=== PATIENT | male | born 1955 ===

== ENCOUNTER 2022-10-17 07:30 | Inpatient (IN) ==
[~2022-10-17 07:30] MED LIST: Buffered Lidocaine 1% SYRIN 1 ml INTRADERM ONE; HYDROcodone/ACETAMIN 5/325 mg TAB PO PRN; Lactated Ringers 1000 ml BAG 1,000 ML IV SCH; Metoclopramide 5 MG/ML VIAL (10 mg) IV PRN; Naloxone 0.4 mg VIAL 0.4 mg/ml 1 ml VIAL IV PRN; Ondansetron 4 mg VIAL 2 MG/ML 2 ml VIAL IV PRN
[2022-10-17] MEDS ORDERED: Buffered Lidocaine 1% SYRIN 1 ml ONE (12:12)
[2022-10-17] MEDS ORDERED: ceFAZolin 2 GM PREMIX 2 GM/50 ML BAG ONE (12:12)
[2022-10-17] MEDS ORDERED: Rocuronium 50 mg VIAL 10 mg/ml 5 ml VIAL (50 mg) ONE (13:24)
[2022-10-17] MEDS ORDERED: Lidocaine 2% PF 5 ML VIAL ONE (13:26)
[2022-10-17] MEDS ORDERED: Propofol 10 MG/ML 20 ML BTL ONE (14:28)
[2022-10-17] MEDS ORDERED: HYDROmorphone 0.5 MG/0.5 ML SYRINGE ONE ×2 (14:28→15:46)
[2022-10-17] MEDS ORDERED: ROPIVACAINE 5 MG/ML 30 ML BTL (0.5%) ONE (14:44)
[2022-10-17] MEDS ORDERED: Phenylephrine 40 mcg/mL 10mL (400mcg) SYRINGE ONE (15:41)
[2022-10-17] MEDS ORDERED: Morphine 2 MG/ML SYRINGE IV PRN (17:47)
[2022-10-17] MEDS ORDERED: Ondansetron ODT 4 mg TAB 4 MG TAB PO PRN (17:47)
[2022-10-17] MEDS ORDERED: Ondansetron 4 mg VIAL 2 MG/ML 2 ml VIAL IV PRN (17:47)
[2022-10-17] MEDS ORDERED: Magnesium Hydroxide LIQ 30 ML UDC PO PRN (17:47)
[2022-10-17] MEDS ORDERED: Lactulose 30 ml UDC PO PRN (17:47)
[2022-10-17] MEDS ORDERED: Lactated Ringers 1000 ml BAG 1,000 ML IV SCH (18:00)
[2022-10-17] MEDS ORDERED: fentaNYL 100 mcg/2 ml 50 MCG/ML VIAL ONE (18:12)
[2022-10-17] MEDS: fentaNYL 100 mcg/2 ml 50 MCG/ML VIAL IV PRN ×4 (18:12→18:42)
[2022-10-17] MEDS ORDERED: HYDROcodone/ACETAMIN 5/325 mg TAB ONE (18:13)
[2022-10-17] MEDS ORDERED: Aspirin EC 81 mg TAB.EC (enteric coated) PO SCH (21:00)
[2022-10-17] MEDS: Magnesium Hydroxide LIQ 30 ML UDC PO SCH (21:33)
[2022-10-17] MEDS: NON FORMULARY MED (Ferrous Sulfate 27 mg iron Tablet) PO SCH (21:42)
[2022-10-17] MEDS: CMC:Dorzolamide/Timolol OPTH (NF) 10 ML BOT LEFT EYE SCH (22:30)
[2022-10-17] MEDS: Latanoprost 0.005% 2.5 ml BTL LEFT EYE SCH (23:21)
[2022-10-17] MEDS: ceFAZolin 1 GM ADVAN 1 GM in NS 0.9% 50 ML 50 ML IVPB SCH (23:23)
[2022-10-18 06:59] LABS: Hematocrit 36 % (42-52); Hemoglobin 11.9 g/dL (14.0-18.0); Mean Platelet Volume 7.1 fL (7.4-10.4); Platelet Count 181 10^3/uL (150-450)
[2022-10-18 07:21] LABS: Creatinine, Serum 1.19 mg/dL (0.67-1.17); Potassium 4.6 mmol/L (3.5-5.0)
[2022-10-18] MEDS: ceFAZolin 1 GM ADVAN 1 GM in NS 0.9% 50 ML 50 ML IVPB SCH ×2 (08:18→15:38)
[2022-10-18] MEDS: Magnesium Hydroxide LIQ 30 ML UDC PO SCH ×2 (10:00→20:35)
[2022-10-18] MEDS: Aspirin EC 81 mg TAB.EC (enteric coated) PO SCH (10:00)
[2022-10-18] MEDS: Vitamin THERAPEUTIC TAB PO SCH (10:00)
[2022-10-18] MEDS: CMC:Dorzolamide/Timolol OPTH (NF) 10 ML BOT LEFT EYE SCH ×2 (10:06→20:35)
[2022-10-18] MEDS: Latanoprost 0.005% 2.5 ml BTL LEFT EYE SCH ×2 (20:35→21:16)
[2022-10-18] MEDS: NON FORMULARY MED (Ferrous Sulfate 27 mg iron Tablet) PO SCH (20:39)
[2022-10-19 05:58] LABS: Hematocrit 35 % (42-52); Hemoglobin 11.7 g/dL (14.0-18.0); Mean Platelet Volume 6.7 fL (7.4-10.4); Platelet Count 171 10^3/uL (150-450)
[2022-10-19] MEDS: CMC:Dorzolamide/Timolol OPTH (NF) 10 ML BOT LEFT EYE SCH ×2 (08:50→21:06)
[2022-10-19] MEDS: Aspirin EC 81 mg TAB.EC (enteric coated) PO SCH (08:55)
[2022-10-19] MEDS: Magnesium Hydroxide LIQ 30 ML UDC PO SCH ×2 (08:55→21:07)
[2022-10-19] MEDS: Vitamin THERAPEUTIC TAB PO SCH (08:55)
[2022-10-19] MEDS: NON FORMULARY MED (Ferrous Sulfate 27 mg iron Tablet) PO SCH (20:02)
[2022-10-19] MEDS: Latanoprost 0.005% 2.5 ml BTL LEFT EYE SCH (21:07)
[2022-10-20 05:57] LABS: Hematocrit 35 % (42-52); Hemoglobin 11.5 g/dL (14.0-18.0); Mean Platelet Volume 6.8 fL (7.4-10.4); Platelet Count 176 10^3/uL (150-450)
[2022-10-20] MEDS: CMC:Dorzolamide/Timolol OPTH (NF) 10 ML BOT LEFT EYE SCH (09:39)
[2022-10-20] MEDS: Vitamin THERAPEUTIC TAB PO SCH (09:40)
[2022-10-20] MEDS: Aspirin EC 81 mg TAB.EC (enteric coated) PO SCH (09:40)
[2022-10-20] MEDS: Magnesium Hydroxide LIQ 30 ML UDC PO SCH (09:41)
[2022-10-20 11:39] VITALS: BP 114/73
== END 2022-10-20 13:28 | DRG 470 ==
LOC: INTOOBSV 11:16 → MCHOB 11:16 → OBSVTOIN 17:48 → SSU 19:46
PROVIDERS: ADMIT Orthopaedic Surgery Adult Reconstructive Orthopaedic Surgery; ATTEND Orthopaedic Surgery Adult Reconstructive Orthopaedic Surgery

== ENCOUNTER 2024-06-16 09:00 | Observation (INO) ==
[~2024-06-16 09:00] MED LIST changes: -Buffered Lidocaine 1% SYRIN 1 ml INTRADERM ONE; -HYDROcodone/ACETAMIN 5/325 mg TAB PO PRN; -Lactated Ringers 1000 ml BAG 1,000 ML IV SCH; +NS 0.45% 1000 ml BAG 1,000 ML IV SCH
[2024-06-16] MEDS ORDERED: fentaNYL 100 mcg/2 ml 50 MCG/ML VIAL ONE ×3 (09:51→16:13)
[2024-06-16] MEDS ORDERED: ceFAZolin 2 GM PREMIX 2 GM/50 ML BAG ONE (10:15)
[2024-06-16] MEDS ORDERED: Tranexamic Acid 1 GM/100ML BAG 2,000 MG/200 ML BAG IV ONE (10:18)
[2024-06-16 10:52] LABS: Rapid COVID-19 Molecular Undetected (Undetected)
[2024-06-16] MEDS: Buffered Lidocaine 1% SYRIN 1 ml INTRADERM ONE (11:00)
[2024-06-16] MEDS: Scopolamine 1 mg/72hr PATCH TRANSDERM ONE (11:01)
[2024-06-16] MEDS: Lactated Ringers 1000 ml BAG 1,000 ML IV SCH ×2 (11:01→18:41)
[2024-06-16] MEDS ORDERED: Lidocaine 2% PF 5 ML VIAL ONE (11:10)
[2024-06-16] MEDS ORDERED: Propofol 10 MG/ML 20 ML BTL ONE (11:10)
[2024-06-16] MEDS ORDERED: Midazolam 2 mg/2 ml VIAL 1 mg/ml 2 ml VIAL (2 mg) ONE (11:11)
[2024-06-16] MEDS ORDERED: ROPIVACAINE 5 MG/ML 30 ML BTL (0.5%) ONE ×4 (12:15→15:13)
[2024-06-16] MEDS ORDERED: HYDROmorphone 0.5 MG/0.5 ML SYRINGE ONE ×3 (13:31→14:13)
[2024-06-16] MEDS ORDERED: Dexamethasone IV 4 MG/ML VIAL 1 ml VIAL ONE (13:34)
[2024-06-16] MEDS ORDERED: Ondansetron 4 mg VIAL 2 MG/ML 2 ml VIAL ONE (13:34)
[2024-06-16] MEDS ORDERED: Magnesium Hydroxide LIQ 30 ML UDC PO PRN (15:33)
[2024-06-16] MEDS ORDERED: Ondansetron ODT 4 mg TAB 4 MG TAB PO PRN (15:33)
[2024-06-16] MEDS ORDERED: Lactulose 30 ml UDC PO PRN (15:33)
[2024-06-16] MEDS ORDERED: Morphine 2 MG/ML SYRINGE IV PRN (15:33)
[2024-06-16] MEDS ORDERED: Ondansetron 4 mg VIAL 2 MG/ML 2 ml VIAL IV PRN (15:33)
[2024-06-16] MEDS ORDERED: Calcium Carb (TUMS) 500 mg CHEW TAB PO PRN (15:33)
[2024-06-16] MEDS: fentaNYL 100 mcg/2 ml 50 MCG/ML VIAL IV PRN (15:50)
[2024-06-16] MEDS ORDERED: HYDROmorphone 0.5 MG/0.5 ML SYRINGE IV PRN (17:08)
[2024-06-16] MEDS ORDERED: Levalbuterol 0.63MG/3ML NEB UNIT OF USE INH PRN (17:45)
[2024-06-16] MEDS: Latanoprost 0.005% 2.5 ml BTL BOTH EYES SCH (22:06)
[2024-06-16] MEDS: CMC: Dorzolamide/Timolol OPTH (NF) 10 ML BOT LEFT EYE SCH (22:06)
[2024-06-16] MEDS: ceFAZolin 2 GM PREMIX 2 GM/50 ML BAG IV SCH (22:08)
[2024-06-16] MEDS: Magnesium Hydroxide LIQ 30 ML UDC PO SCH (22:16)
[2024-06-16] MEDS: Acetaminophen IV 1 GM/100ML 1,000 MG/100 ML BAG IV ONE (23:25)
[2024-06-17 06:14] LABS: Hematocrit 33.8 % (38-53); Hemoglobin 11.4 g/dL (13.2-16.3); Mean Platelet Volume 7.3 fL (7.5-11.2); Platelet Count 215 10^3/uL (150-450)
[2024-06-17 06:42] LABS: Creatinine, Serum 1.12 mg/dL (0.67-1.17); Potassium 4.8 mmol/L (3.5-5.0); eGFR CKD-EPI 71.1 (>60)
[2024-06-17] MEDS: Vitamin THERAPEUTIC TAB PO SCH (09:34)
[2024-06-18 06:10] LABS: Hematocrit 32.7 % (38-53); Hemoglobin 10.9 g/dL (13.2-16.3); Mean Platelet Volume 7.2 fL (7.5-11.2); Platelet Count 205 10^3/uL (150-450)
[2024-06-18 12:11] VITALS: BP 126/72
== END 2024-06-18 12:00 | disposition home or self-care (01) ==
LOC: MCHOB 09:53 → INTOOBSV 09:53 → SSU 15:33
PROVIDERS: ADMIT Orthopaedic Surgery Adult Reconstructive Orthopaedic Surgery; ATTEND Orthopaedic Surgery Adult Reconstructive Orthopaedic Surgery